=== PATIENT | female | born 1995 | race Caucasian/White ===

== ENCOUNTER 2019-03-11 16:55 | Inpatient (IN) | payer SELFPAY ==
[2019-03-11] MEDS ORDERED: Acetaminophen TAB* 325 MG PO ONE (17:48)
[2019-03-11 17:51] LABS: Urine Appearance Clear; Urine Bilirubin Negative (Negative); Urine Blood Negative (Negative); Urine Color Straw; Urine Glucose Negative (Negative); Urine Ketones Negative (Negative); Urine Nitrite Negative (Negative); Urine Protein Negative (Negative); Urine Specific Gravity 1.003 (1.010-1.030); Urine Urobilinogen Negative (Negative)
--- NOTE | 2019-03-11 17:52 | ED ---
Psychiatric Complaint - HPI Summary HPI Summary: 23-year-old female presents with increasing suicidal thoughts for the past couple weeks. She denies any known triggers. She states that she is in town for college. She is currently working. She does not have any family in the area. She lives alone. she has been seeing her therapist and says that she has been feeling out of control. She denies any plan. No homicidal thoughts. denies any drug use. Denies any other symptoms. - History Of Current Complaint Chief Complaint: EDSuicidal Time Seen by Provider: 03/11/19 17:31 - Allergies/Home Medications Allergies/Adverse Reactions: Allergies Allergy/AdvReac Type Severity Reaction Status Date / Time codeine AdvReac Vomiting Verified 03/11/19 17:00 Home Medications: Home Medications ALPRAZolam TAB* [Xanax TAB*] 0.25 mg PO DAILY PRN 03/11/19 [History Confirmed ] Ethinyl Estradiol/Drospirenone [Gianvi 3-0.02 mg] 1 tab PO DAILY 03/11/19 [ History Confirmed 03/11/19] Guanfacine HCl [Guanfacine ER] 1 mg PO DAILY 03/11/19 [History Confirmed ] Lisdexamfetamine(NF) [Vyvanse(NF)] 30 mg PO DAILY 03/11/19 [History Confirmed ] lamoTRIgine TAB(*) [LaMICtal TAB(*)] 100 mg PO DAILY 03/11/19 [History Confirmed 03/11/19] PMH/Surg Hx/FS Hx/Imm Hx Endocrine/Hematology History: Denies: Hx Anticoagulant Therapy Cardiovascular History: Denies: Hx Hypertension - Immunization History Immunizations Up to Date: Yes Infectious Disease History: No Infectious Disease History: Denies: Traveled Outside the [place] in Last 30 Days - Family History Known Family History: Positive: Non-Contributory - Social History Alcohol Use: Weekly Substance Use Type: Reports: None Smoking Status (MU): Never Smoked Tobacco Review of Systems Negative: Fever Negative: Chest Pain Negative: Shortness Of Breath Positive: Depressed All Other Systems Reviewed And Are Negative: Yes Physical Exam Triage Information Reviewed: Yes Vital Signs On Initial Exam: Initial Vitals Temp Pulse Resp BP Pulse Ox 99.3 F 75 16 137/83 100 03/11/19 16:57 03/11/19 16:57 03/11/19 16:57 03/11/19 16:57 03/11/19 16:57 Vital Signs Reviewed: Yes Appearance: Positive: Well-Appearing Skin: Positive: Warm, Dry Head/Face: Positive: Normal Head/Face Inspection Eyes: Positive: Normal, Conjunctiva Clear ENT: Positive: Pharynx normal Respiratory/Lung Sounds: Positive: Clear to Auscultation, Breath Sounds Present Cardiovascular: Positive: Normal, RRR Abdomen Description: Positive: Nontender, Soft Bowel Sounds: Positive: Present Musculoskeletal: Positive: Normal Neurological: Positive: Normal Psychiatric: Positive: Normal Diagnostics - Vital Signs Vital Signs Temp Pulse Resp BP Pulse Ox 03/11/19 16:57 99.3 F 75 16 137/83 100 - Laboratory Lab Results: Lab Results 03/11/19 Range/Units 17:35 Urine Color Straw Urine Appearance Clear Urine pH 8.0 (5-9) Ur Specific [place] 1.003 L (1.010-1.030) Urine Protein Negative (Negative) Urine Ketones Negative (Negative) Urine Blood Negative (Negative) Urine Nitrate Negative (Negative) Urine Bilirubin Negative (Negative) Urine Urobilinogen Negative (Negative) Ur Leukocyte Esterase Negative (Negative) Urine Glucose Negative (Negative) Result Diagrams: 03/11/19 17:57 03/11/19 17:57 Lab Statement: Any lab studies that have been ordered have been reviewed, and results considered in the medical decision making process. Course/Dx - Course Course Of Treatment: 23-year-old female presents with increasing suicidal thoughts for the past couple weeks. She denies any known triggers. She states that she is in town for college. She is currently working. She does not have any family in the area. She lives alone. she has been seeing her therapist and says that she has been feeling out of control. She denies any plan. No homicidal thoughts. denies any drug use. Denies any other symptoms. On exam has normal physical exam. Is medical clear for mental health. after mental health exam patient will be admited for depression by Dr Rodriguez - Differential Dx/Clinical Impression Differential Diagnosis/HQI/PQRI: Positive: Anxiety, Depression, Suicidal Ideation Provider Diagnosis: Depression Discharge - Sign-Out/Discharge Documenting (check all that apply): Patient Departure - Discharge Plan Condition: Stable Disposition: [facility] [place] Disposition and Condition Condition: STABLE Disposition: Psychiatric Facility [facility]
[2019-03-11 18:05] LABS: ABS Lymphocytes 1.4 10^3/ul (1.0-4.8); ABS Monocytes 0.3 10^3/ul (0-0.8); ABS Neutrophils 2.5 10^3/ul (1.5-7.7); Eosinophil % 1.1 %; Hematocrit 38 % (35-47); Hemoglobin 13.1 g/dL (12.0-16.0); Lymphocyte % 32.6 %; Mean Corpuscular HGB Conc 34 g/dL (31-36); Mean Corpuscular Hemoglobin 28 pg (27-31); Mean Corpuscular Volume 81 fL (80-97); Mean Platelet Volume 8.3 fL (7.4-10.4); Nucleated Red Blood Cells % 0.1; Platelet Count 238 10^3/uL (150-450); Red Blood Count 4.71 10^6 /uL (3.70-4.87); Red Cell Distribution Width 13 % (10-15); White Blood Count 4.3 10^3/uL (3.5-10.8)
[2019-03-11 18:17] LABS: Urine Benzodiazepine Screen None Detected (None Detect); Urine Opiates Screen None Detected (None Detect)
[2019-03-11 18:23] LABS: ALT 11 U/L (7-52); AST 15 U/L (13-39); Albumin 4.8 g/dL (3.2-5.2); Albumin/Globulin Ratio 2.1 (1-3); Alkaline Phosphatase 59 U/L (34-104); Anion Gap 5 mmol/L (2-11); BUN/Creatinine Ratio 16.3 (8-20); Blood Urea Nitrogen 13 mg/dL (6-24); CO2 Carbon Dioxide 28 mmol/L (22-32); Calcium 9.7 mg/dL (8.6-10.3); Chloride 106 mmol/L (101-111); EGFR African American 109.6 (>60); EGFR Non-African American 90.5 (>60); Globulin 2.3 g/dL (2-4); Glucose 95 mg/dL (70-100); Sodium 139 mmol/L (135-145); Total Protein 7.1 g/dL (6.4-8.9)
[2019-03-11 18:47] LABS: Acetaminophen < 15 mcg/mL; Alcohol < 10 mg/dL (<10); Salicylate < 2.50 mg/dL (<30)
[2019-03-11 18:59] LABS: TSH (Thyroid Stimulating Horm) 1.01 mcIU/mL (0.34-5.60)
[2019-03-11] MEDS ORDERED: ALPRAZolam TAB* 0.25 MG PO PRN (21:58)
[2019-03-11] MEDS ORDERED: Al Hydrox/Mg Hydrox/Simet LIQ* 30 ML UDC PO PRN (21:59)
[2019-03-11] MEDS: Acetaminophen TAB* 325 MG PO PRN (22:46)
[2019-03-12] MEDS: Multivitamins/Minerals TAB PO SCH (07:58)
[2019-03-12] MEDS: lamoTRIgine TAB(*) 100 MG PO SCH (07:58)
[2019-03-12] MEDS: Lisdexamfetamine(NF) 10 MG CAP PO SCH (08:01)
[2019-03-12 08:05] LABS: HDL Cholesterol 64.4 mg/dL
[2019-03-12] MEDS ORDERED: GUANFACINE 1 MG PO SCH (09:00)
--- NOTE | 2019-03-12 13:34 | HP ---
H&P (Free Text) History and Physical: ID Marie Kaur is 23-year-old single, childless, full-time student. Chief complaint Reported suicidal ideation that she was frightened she might act on. HPI At age 19, Marie nearly attempted suicide by hanging herself, having place her head in a noose, but did not step off a stool. She recalls at that time grappling with depression and anxiety. She denies any other history of suicidal action. She reports on this occasion that she did not have a method in mind, but was afraid nevertheless that she might take action to kill herself. She met with her therapist Simin Crowell at [facility] and again Thursday, and came from their Thursday meeting directly to the ED. 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 Also cites as contributing to SI that her energy is very low , such that she cannot adequately care for herself. Other contributing stressors include that she had a falling out with a friend and has since been feeling lonely. She also has rats infesting her apartment. Review of current symptoms: Mood not good. Sleeping very poorly, perhaps an hour at a time. Endorsing anhedonia. Feeling guilty, helpless, hopeless and worthless. Energy low. Poor concentration (on Vyvanse), affected by detachment, eg walking down the street zoned out. Appetite not really increased, but eating a ton. Still having thoughts as we meet that she wants to be because basic things are too hard. Endorses racing thoughts, unable to stop thinking, wanting to do a million different things. When engaged in an activity, takes double the amount of time. Endorses mildly irritable mood, but low mood is the main thing, and definitely not euphoria. Denies any psychotic symptoms, does not feel fear she has is paranoia, just very nervous. Eating a lot of sugary, fatty foods, but does not feel she is binging exactly. Denies purging. Had restricted in middle school. Denies any history of trauma or PTSD. Feeling more anxious these days, starts after 1 or 2 hours anxiety-free right after getting up, peaks around noon along with feeling depressed, better by bedtime. She does not think this has anything to do with serum levels of Vyvanse or other meds. ROS and PE Marie denies any physical symptoms and declines repeat physical exam. In the ED last evening, she had a negative ROS and an entirely normal PE aside from psychiatric concerns. Laboratory Tests 03/11/19 03/11/19 03/11/19 17:35 17:35 17:57 WBC 4.3 RBC 4.71 Hgb 13.1 Hct 38 MCV 81 MCH 28 MCHC 34 RDW 13 Plt Count 238 MPV 8.3 Neut % (Auto) 58.5 Lymph % (Auto) 32.6 [place] % (Auto) 7.0 Eos % (Auto) 1.1 Baso % (Auto) 0.8 Absolute Neuts (auto) 2.5 Absolute Lymphs (auto) 1.4 Absolute Monos (auto) 0.3 Absolute Eos (auto) 0.0 Absolute Basos (auto) 0.0 Absolute Nucleated RBC 0.0 Nucleated RBC % 0.1 Sodium Potassium Chloride Carbon Dioxide Anion Gap BUN Creatinine Est GFR ( Amer) Est GFR (Non-Af Amer) BUN/Creatinine Ratio Glucose Hemoglobin A1c Calcium Total Bilirubin AST ALT Alkaline Phosphatase Total Protein Albumin Globulin Albumin/Globulin Ratio Triglycerides Cholesterol LDL Cholesterol HDL Cholesterol TSH Urine Color Straw Urine Appearance Clear Urine pH 8.0 Ur Specific [place] 1.003 L Urine Protein Negative Urine Ketones Negative Urine Blood Negative Urine Nitrate Negative Urine Bilirubin Negative Urine Urobilinogen Negative Ur Leukocyte Esterase Negative Urine Glucose Negative Salicylates Urine Opiates Screen None detected Acetaminophen Ur Barbiturates Screen None detected Ur Phencyclidine Scrn None detected Ur Amphetamines Screen None detected U Benzodiazepines Scrn None detected Urine Cocaine Screen None detected U Cannabinoids Screen None detected Serum Alcohol 03/11/19 03/12/19 03/12/19 17:57 07:25 07:25 WBC RBC Hgb Hct MCV MCH MCHC RDW Plt Count MPV Neut % (Auto) Lymph % (Auto) [place] % (Auto) Eos % (Auto) Baso % (Auto) Absolute Neuts (auto) Absolute Lymphs (auto) Absolute Monos (auto) Absolute Eos (auto) Absolute Basos (auto) Absolute Nucleated RBC Nucleated RBC % Sodium 139 Potassium 4.0 Chloride 106 Carbon Dioxide 28 Anion Gap 5 BUN 13 Creatinine 0.80 Est GFR ( Amer) 109.6 Est GFR (Non-Af Amer) 90.5 BUN/Creatinine Ratio 16.3 Glucose 95 Hemoglobin A1c 5.4 Calcium 9.7 Total Bilirubin 0.40 AST 15 ALT 11 Alkaline Phosphatase 59 Total Protein 7.1 Albumin 4.8 Globulin 2.3 Albumin/Globulin Ratio 2.1 Triglycerides 78 Cholesterol 182 LDL Cholesterol 102 HDL Cholesterol 64.4 TSH 1.01 Urine Color Urine Appearance Urine pH Ur Specific [place] Urine Protein Urine Ketones Urine Blood Urine Nitrate Urine Bilirubin Urine Urobilinogen Ur Leukocyte Esterase Urine Glucose Salicylates < 2.50 Urine Opiates Screen Acetaminophen < 15 Ur Barbiturates Screen Ur Phencyclidine Scrn Ur Amphetamines Screen U Benzodiazepines Scrn Urine Cocaine Screen U Cannabinoids Screen Serum Alcohol < 10 Past psychiatric history - Currently a patient at [facility] with Dr Rodriguez and Simin Crowell. Had been under care of Lety Grace in [place]. Never psychiatrically hospitalized before. Single prior suicide attempt at age 19. Substance abuse history Denies any Outpatient medications Vyvanse 30 mg daily and Tenex 0.5 mg daily against attentional deficits of ADHD, Lamictal 100 mg daily for mood stabilization, Xanax 0.25 mg daily as needed for anxiety (rarely used, but using more often in recent days). Current meds - Acetaminophen (Tylenol Tab*) 650 mg PO Q4H PRN PRN Reason: PAIN; OR TEMP >101 Last Admin: 03/11/19 22:46 Dose: 650 mg Al Hydrox/Mg Hydrox/Simethicone (Maalox Plus*) 30 ml PO Q4H PRN PRN Reason: INDIGESTION Alprazolam (Xanax Tab*) 0.25 mg PO DAILY PRN PRN Reason: ANXIETY Guanfacine HCl (Intuniv (Nf)) 1 mg PO DAILY [facility] Lamotrigine (Lamictal Tab(*)) 100 mg PO DAILY [facility] Last Admin: 03/12/19 07:58 Dose: 100 mg Lisdexamfetamine Dimesylate (Vyvanse(Nf)) 30 mg PO DAILY [facility] Last Admin: 03/12/19 08:01 Dose: 30 mg Multivitamins/Minerals (Theragran/Minerals Tab*) 1 tab PO DAILY [facility] Last Admin: 03/12/19 07:58 Dose: 1 tab Past psychiatric medication trials - Got zaps when taking Lexapro. Does not recall any side effects of sertraline, but unsurei if it was helpful. Pharmacy: [facility] Past medical history Denies any. PCP [facility] providers. Family psychiatric history Father has depression and anxiety. Maternal grandmother has anxiety. Fathers sister had some alcohol use problems. Brother is on autism spectrum. Social history - Born in [place], [place]. Walked and talked on time. Childhood was easy. Has 2 younger brothers. Did well in school. Noticed already in kindergarten that she had focus issues, but ADHD was not diagnosed until age 19. Main social supports are family. Mental Status Examination - Good grooming and hygiene. Good eye contact. Cooperative and collaborative attitude. Linear and goal-directed thought process. Normal motor and speech patterns. Mood low, with some smiles and appropriate low volume laughter at times, but largely congruent mood otherwise. Denies AH/VH/PI/HI. Denies intent or plan toward SI, but still feeling passive SI enough to be frightened by it, but also frightened to be here on a locked psychiatric unit. Impression - Marie reported SI in the ED last evening with fear that she might act on these feelings, though reports she does not have a specific plan. She has been treated by this underwriter under diagnoses of ADHD and other specified bipolar disorder. Current symptoms are predominantly depressive, with prominent anxiety. She would like to address this with an antidepressant, and reports past trials of sertraline with unknown effect, but no side effects she can recall. She is concerned about her job at [employer] being in jeopardy due to missing work while here, and is hopeful for discharge on Thursday. She understands that this is dependent on her feeling certain she can maintain her safety, which must take precedence. Diagnoses - Other specified bipolar disorder, insufficient duration of hypomanic symptoms for type II, currently depressed. ADHD, predominantly inattentive type. Plan Continue current meds and add sertraline 50 mg daily against depressive symptoms and anxiety. Encourage groups and milieu. Coordinate aftercare with [facility] providers.
[2019-03-12] MEDS: Sertraline* 50 MG TAB PO SCH (14:33)
[2019-03-12] MEDS: guanFACINE TAB* 1 MG PO SCH (14:48)
[2019-03-13] MEDS: lamoTRIgine TAB(*) 100 MG PO SCH (09:21)
[2019-03-13] MEDS: Lisdexamfetamine(NF) 10 MG CAP PO SCH (09:21)
[2019-03-13] MEDS: Sertraline* 50 MG TAB PO SCH (09:21)
[2019-03-13] MEDS: Multivitamins/Minerals TAB PO SCH (09:21)
[2019-03-13] MEDS: guanFACINE TAB* 1 MG PO SCH (09:21)
[2019-03-13] MEDS: Acetaminophen TAB* 325 MG PO PRN (10:21)
[2019-03-14] MEDS: Lisdexamfetamine(NF) 10 MG CAP PO SCH (10:02)
[2019-03-14] MEDS: guanFACINE TAB* 1 MG PO SCH (10:02)
[2019-03-14] MEDS: Multivitamins/Minerals TAB PO SCH (10:04)
[2019-03-14] MEDS: Sertraline* 50 MG TAB PO SCH (10:04)
[2019-03-14] MEDS: lamoTRIgine TAB(*) 100 MG PO SCH (10:04)
--- NOTE | 2019-03-14 16:14 | PN ---
Subjective - Subjective Date of Service: 03/14/19 Service Type: 55862 Hosp care 25 min moderate complexity Subjective: Discussed discomfort, suicidality, and frustration tolerance with Marie. She acknowledged that she required more support and that she was going through a difficult time and that she reverted to old behavior patterns. Objective - General Observations Appearance: Neat, Well Groomed Appears Stated Age: Yes Stature: WNL Posture: WNL Eye Contact: Average Behavior/Activity: WNL - Interaction Observations Attitude Towards Examiner: Cooperative Stated Mood: Dysphoric Affect: Full Speech Pattern/Tone: Clear Thought Process: Coherent Perception: WNL Thought Content: WNL, Self-Deprecatory Hallucination Type: None Delusion Type: None - Cognitive Function Orientation: A&O x 4 Level of Consciousness: Awake, Alert, Appropriate Cognition: WNL Estimated Intelligence: Normal Insight: WNL Judgment Within Normal Limits: Yes - Medication Compliance Cooperative with Inpatient Medication Regimen: Yes - Group Participation Participates in Group Activities: Yes Assessment - Assessment Merits Inpatient Hospitalization: For Immediate Safety Inpatient DSM-V Dx: F33.1 Clinical Impression: 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 Plan - Plan Treatment Plan: Name: MARIE BOBO Birthdate: 1995 [id number] Marie will be discharged Thursday. Continued Medication Management: Different Medication Medications: Current Medications Acetaminophen (Tylenol Tab*) 650 mg PO Q4H PRN PRN Reason: PAIN; OR TEMP >101 Last Admin: 03/13/19 10:21 Dose: 650 mg Al Hydrox/Mg Hydrox/Simethicone (Maalox Plus*) 30 ml PO Q4H PRN PRN Reason: INDIGESTION Alprazolam (Xanax Tab*) 0.25 mg PO DAILY PRN PRN Reason: ANXIETY Guanfacine HCl (Tenex Tab*) 0.5 mg PO DAILY [facility] Last Admin: 03/14/19 10:02 Dose: 1 mg Lamotrigine (Lamictal Tab(*)) 100 mg PO DAILY [facility] Last Admin: 03/14/19 10:04 Dose: 100 mg Lisdexamfetamine Dimesylate (Vyvanse(Nf)) 30 mg PO DAILY [facility] Last Admin: 03/14/19 10:02 Dose: 30 mg Multivitamins/Minerals (Theragran/Minerals Tab*) 1 tab PO DAILY [facility] Last Admin: 03/14/19 10:04 Dose: 1 tab Sertraline HCl (Zoloft*) 50 mg PO DAILY [facility] Last Admin: 03/14/19 10:04 Dose: 50 mg - Discharge Plan Discharge Plan: Outpatient Follow Up
[2019-03-15] MEDS: Sertraline* 50 MG TAB PO SCH (08:27)
[2019-03-15] MEDS: Multivitamins/Minerals TAB PO SCH (08:27)
[2019-03-15] MEDS: Lisdexamfetamine(NF) 10 MG CAP PO SCH (08:27)
[2019-03-15] MEDS: lamoTRIgine TAB(*) 100 MG PO SCH (08:27)
[2019-03-15] MEDS: guanFACINE TAB* 1 MG PO SCH (08:27)
[2019-03-15 08:58] VITALS: BP 116/71
--- NOTE | 2019-03-16 14:52 | DS ---
DISCHARGE SUMMARY: DATE OF ADMISSION: 03/11/19 DATE OF DISCHARGE: 03/15/19 PROVIDER: Camila Barth NP in Psychiatry. SUPERVISING PHYSICIAN: Dr. Massimo Richardson.* (DICTATED BY CAMILA BARTH NP) DIAGNOSES: Major depressive disorder and generalized anxiety disorder. CONDITION AT THE TIME OF DISCHARGE: Improved, psychiatrically cleared, stable. Participated in groups and was social with peers. Her family is agreeable to discharge as is Marie. She has done well here psychiatrically. She tolerated the new medication sertraline well. [facility]. MENTAL STATUS EXAM: At the time of discharge, Marie is calm, cooperative, and makes good eye contact. She is alert and oriented x4. Her grooming is good. Her speech pace is normal. Her thought processes are logical. She is not psychotic or delusional. She denies AH, VH, SI, and HI. Her insight and judgment are good. She is willing to follow up and urged to see her therapist. DISCHARGE INSTRUCTIONS TO THE PATIENT: A. Medications: 1. Alprazolam 0.25 mg daily p.r.n. agitation. 2. Gianvi 3 mg/0.02 mg tablet daily. 3. Guanfacine 0.5 mg daily. 4. Lamictal 100 mg daily. 5. Vyvanse 30 mg daily. 6. Multivitamin daily. 7. Sertraline 50 mg daily. B. Diet is regular. C. Activity is as tolerated. Marie is a nonsmoker. There are no studies pending at the time of discharge. D. Followup care. Marie has an appointment with iSmin Crowell, her therapist on 03/15/19, at 5:00 p.m. E. Disposition. Marie is being discharged back to her apartment. F. Substance abuse followup is not indicated. HOSPITAL COURSE: Part A: Chief Complaint: Reported suicidal ideation that she was frightened she might act on. At age 19, Marie nearly attempted suicide by hanging herself, having placed her head in the noose, but did not step off the stool. She recalls at that time grappling with depression and anxiety. She denies any other history of suicidal action. She reports on this occasion that she did not have a method in mind, but was afraid nevertheless that she might take action to kill herself. She met with her therapist, Simin Crowell, at [facility] and again Thursday and came from their Thursday meeting directly to the ED. 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 Also cites contributing to her SI that her energy is very low such that she cannot adequately care for herself. Other contributing stressors include that she had a falling out with a friend and has since been feeling lonely. She also has rats infesting her apartment. Review Of Current Symptoms: Mood "not good." Sleeping very poorly perhaps an hours at a time. Endorsing anhedonia. Feeling guilty, helpless, hopeless, and worthless. Energy low, poor. Concentration (on Vyvanse), affected by "detachment," e.g., walking down the street "zoned out." Appetite not really increased, but "eating a ton." Still having thoughts as we meet that she wants to be because "basic things are too hard." She endorses racing thoughts, unable to stop thinking, wanting to do a million different things. When engaged in an activity, it takes double the amount of time. Endorses mildly irritable mood, but low mood is the main thing and definitely not euphoria. Denies any psychotic symptoms. Does not feel she has paranoia, just very nervous. Eating a lot of sugary fatty foots, but does not feel she is binging exactly. Denies purging. Had restricted in middle school. [place] any history of trauma or PTSD. Feeling more anxious these days, starts after 1 or 2 hours, anxiety free right after getting up, peaks around noon along with feeling depressed, better by bedtime. She does not think this has anything with serum levels of Vyvanse or other meds. Part B: Psychiatric treatment was rendered. Marie was admitted to the adult behavioral unit and placed on 15-minute checks for safety. She did well on the unit and went to groups. She interacted with peers well. The addition of sertraline 50 mg daily was tolerated quite well. As she has few symptoms of possible bipolar disorder and many, many symptoms of depression, the addition of sertraline seems the most reasonable choice rather than increasing mood stabilizer or adding an atypical to augment that. She is not on an antipsychotic. There were no consults entered for Marie. She is improved. We spent a good deal of time talking about what would get in the way of her feeling suicidal again and what she could do if she did feel suicidal. We talked about the emergence of shockingly strong symptoms and what she could do about them. She is significantly improved. She is no longer suicidal. She is future oriented. Her sleep improved here. Her ability to concentrate also improved. Her appetite seemed to normalize. CAMILA BARTH, MARISOL [id number]/[facility] #: [id number] KAYLI
== END 2019-03-15 12:18 | disposition home or self-care (01) | DRG 885 ==
LOC: ED 16:55 → BSU 21:59
PROVIDERS: ADMIT Psychiatry & Neurology Psychiatry; ATTEND Psychiatry & Neurology Psychiatry
DX: F33.1 Major depressive disorder, recurrent, moderate (principal); R45.851 Suicidal ideations; F41.9 Anxiety disorder, unspecified; F90.9 Attention-deficit hyperactivity disorder, unspecified type; Z79.899 Other long term (current) drug therapy; Z81.8 Family history of other mental and behavioral disorders; Z81.1 Family history of alcohol abuse and dependence
CPT/HCPCS: 36415; 80053; 80061; 80307; 80320; 80329; 81003; 83036; 84443; 85025; 99222; 99232; 99238; 99284; A9270-GY; G0480

== ENCOUNTER 2019-06-13 20:34 | Emergency (ER) | payer BC ==
[2019-06-13 20:56] VITALS: BP 120/70
--- NOTE | 2019-06-13 21:36 | UC ---
Throat Pain/Nasal Jeremy HPI - HPI Summary HPI Summary: The patient is a 24-year-old female that has had a weeklong history of nasal congestion and postnasal drip. Last night she states swallowed some mucus and had some nausea vomiting and dry heaves that lasted for about 10 minutes. She has no fever. She states that today her nasal congestion is felt better. - History of Current Complaint Chief Complaint: UCGU Stated Complaint: VOMITING Time Seen by Provider: 06/13/19 21:12 Hx Obtained From: Patient Hx Last Menstrual Period: now Onset/Duration: Gradual Onset, Lasting Days Severity: Mild Pain Intensity: 0 Pain Scale Used: 0-10 Numeric Associated Signs & Symptoms: Positive: Sinus Discomfort, Nasal Discharge - Epiglottits Risk Factors Epiglottis Risk Factors: Negative - Allergies/Home Medications Allergies/Adverse Reactions: Allergies Allergy/AdvReac Type Severity Reaction Status Date / Time codeine AdvReac Vomiting Verified 06/13/19 20:57 PMH/Surg Hx/FS Hx/Imm Hx Previously Healthy: Yes Other History Of: Negative For: Anticoagulant Therapy - Surgical History Surgical History: Yes Surgery Procedure, Year, and Place: appendectomy age 18 - Family History Known Family History: Positive: Hypertension, Non-Contributory - Social History Alcohol Use: Weekly Alcohol Amount: 1-2 drinks Substance Use Type: None Smoking Status (MU): Never Smoked Tobacco - Immunization History Most Recent Influenza Vaccination: last Fall Most Recent Pneumonia Vaccination: never Review of Systems All Other Systems Reviewed And Are Negative: Yes Constitutional: Positive: Negative Skin: Positive: Negative Eyes: Positive: Negative ENT: Positive: Nasal Discharge, Sinus Congestion, Sinus Pain/Tenderness Respiratory: Positive: Cough Cardiovascular: Positive: Negative Gastrointestinal: Positive: Negative Genitourinary: Positive: Negative Motor: Positive: Negative Neurovascular: Positive: Negative Musculoskeletal: Positive: Negative Neurological: Positive: Negative Psychological: Positive: Negative Physical Exam Triage Information Reviewed: Yes Appearance: Well-Appearing, No Pain Distress, Well-Nourished Vital Signs: Initial Vital Signs Temp 99.3 F 06/13/19 20:52 Pulse 70 06/13/19 20:52 Resp 20 06/13/19 20:52 BP 120/70 06/13/19 20:52 Pulse Ox 98 06/13/19 20:52 Vital Signs Reviewed: Yes Eyes: Positive: Conjunctiva Clear ENT: Positive: Hearing grossly normal, Nasal congestion, TMs normal, Uvula midline, Other - petechiae eyelids. Negative: Nasal drainage, Tonsillar swelling, Tonsillar exudate, Trismus, Muffled voice, Hoarse voice, Sinus tenderness Dental Exam: Normal Neck: Positive: Supple, Nontender Respiratory: Positive: Lungs clear, Normal breath sounds, No respiratory distress, No accessory muscle use Cardiovascular: Positive: RRR, No Murmur Abdomen Description: Positive: Nontender Bowel Sounds: Positive: Present Musculoskeletal: Positive: ROM Intact, No Edema Psychological Exam: Normal Skin Exam: Normal Throat Pain/Nasal Course/Dx - Differential Dx/Diagnosis Provider Diagnosis: Sinus pressure Discharge ED - Sign-Out/Discharge Documenting (check all that apply): Patient Departure All imaging exams completed and their final reports reviewed: No Studies - Discharge Plan Condition: Stable Disposition: HOME Prescriptions: Fluticasone NASAL SPRAY 50MCG* [Flonase NASAL SPRAY 50MCG*] 2 spray BOTH NARES BID #1 btl Patient Education Materials: Upper Respiratory Infection (ED) Referrals: No Primary Care Phys,NOPCP [Primary Care Provider] - Additional Instructions: the rash around your eyes is from vomiting and dry heaves the force cause small blood vessel to burst it may take 2 weeks to clear up OTC saline nasal spray 2 sprays each nostril twice daily recheck in 5-7 days if not better recheck sooner for new or worsening symptoms - Billing Disposition and Condition Condition: STABLE Disposition: Home
== END 2019-06-13 21:45 | disposition home or self-care (01) ==
LOC: UCEAST 20:34
DX: R09.89 Other specified symptoms and signs involving the circulatory and respiratory systems (principal); R09.81 Nasal congestion; R09.82 Postnasal drip; R11.2 Nausea with vomiting, unspecified; Z88.5 Allergy status to narcotic agent
CPT/HCPCS: 81003; 84702; 99211; G0463